=== PATIENT | male | born 1960 | race Hispanic/Latino ===

== ENCOUNTER 2024-12-05 11:16 | Emergency (ER) | payer MEDICARE, OTHER ==
[~2024-12-05] VITALS: Ht 160 cm; Wt 57.6 kg
[2024-12-05 11:35] VITALS: TEMP 98.4
[2024-12-05 12:33] LABS: EOSINOPHILS # (AUTO) 0.2 (0.0-0.4); EOSINOPHILS % 5.3 % (0.0-6.0); HEMATOCRIT 29.6 % (38.2-49.6); LYMPHOCYTES # (AUTO) 0.4 (1.0-3.2); LYMPHOCYTES % 14.6 % (18.0-39.1); MEAN CORPUSCULAR HEMOGLOBIN 36.2 pg (28-32); MEAN CORPUSCULAR HGB CONC 33.8 g/dL (31-35); MEAN CORPUSCULAR VOLUME 107.2 fL (81-99); MONOCYTES # (AUTO) 0.4 (0.2-0.8); MONOCYTES % 12.5 % (4.4-11.3); NEUTROPHILS # (AUTO) 1.9 (2.1-6.9); NEUTROPHILS % 67.6 % (38.7-80.0); PLATELET COUNT 123 x10e3/uL (140-360); RED BLOOD COUNT 2.76 x10e6/uL (4.3-5.7); RED CELL DISTRIBUTION WIDTH 16.3 % (11.7-14.4); WHITE BLOOD COUNT 2.81 x10e3/uL (4.8-10.8)
[2024-12-05 12:42] LABS: INR 1.08; PARTIAL THROMBOPLASTIN TIME 32.6 seconds (23.8-35.5)
[2024-12-05] MEDS ORDERED: IOPAMIDOL 370 MG/ML 100 ML INFUS..BTL INJ ONE (12:44)
[2024-12-05 12:47] LABS: ALBUMIN 2.5 g/dL (3.5-5.0); ALBUMIN/GLOBULIN RATIO 0.7 (0.8-2.0); ANION GAP 15.3 mmol/L (8-16); BILIRUBIN,TOTAL 1.5 mg/dL (0.2-1.2); CALCIUM 7.6 mg/dL (8.4-10.2); CREATININE, SERUM 5.15 mg/dL (0.72-1.25); MAGNESIUM 2.7 MG/DL (1.3-2.1); POTASSIUM 4.3 mmol/L (3.5-5.1)
[2024-12-05 12:53] LABS: TROPONIN I 0.05 ng/mL (0-0.300)
[2024-12-05 13:10] VITALS: PULSE 67; RESP 15
[2024-12-05] MEDS: Morphine 4mg INJECTION 4 MG/ML INJ IV STA (13:12)
[2024-12-05] MEDS: ONDANSETRON HCL INJ 2MG/ML 2ML 2 MG/ML VIAL IV STA (13:12)
[2024-12-05 15:28] VITALS: BP 149/84; PULSE 87; RESP 18; TEMP 98.3; O2SAT 98
== END 2024-12-05 15:00 | disposition home or self-care (01) ==
LOC: ER 12:03
DX: R10.33 Periumbilical pain (principal); E11.22 Type 2 diabetes mellitus with diabetic chronic kidney disease; N18.6 End stage renal disease; M54.9 Dorsalgia, unspecified; G89.29 Other chronic pain
CPT/HCPCS: 36415; 71045; 74177; 80053; 83735; 84484; 85025; 85610; 85730; 93005; 99284; J2270; J2405; Q9967